=== PATIENT | female | born 1990 | race Hispanic/Latino ===

== ENCOUNTER 2019-02-07 09:04 | Day surgery (SDC) | payer OTHER ==
[~2019-02-07] VITALS: Ht 154.9 cm; Wt 76.2 kg
[~2019-02-07 09:04] MED LIST: LR 1,000 ML IV ONE
[2019-02-07] MEDS ORDERED: PROPOFOL 200 MG/20 ML VIAL As Ordered ONE ×2 (09:27→10:56)
[2019-02-07] MEDS ORDERED: fentaNYL 100 MCG/2 ML INJECTION (J3010) As Ordered ONE (09:27)
[2019-02-07] MEDS ORDERED: KETOROLAC 60 MG/2 ML VIAL (J1885) As Ordered ONE (09:27)
[2019-02-07] MEDS ORDERED: dexameTHASONE 4 MG/ML 1ML VIAL (J1100) As Ordered ONE (09:27)
[2019-02-07] MEDS ORDERED: LIDOCAINE 2% INJ 100 MG/5 ML SDV (FOR ANES.) As Ordered ONE (09:27)
[2019-02-07] MEDS ORDERED: MIDAZOLAM INJ 2 MG/2 ML VIAL (J2250) As Ordered ONE (09:27)
[2019-02-07] MEDS ORDERED: ONDANSETRON 4MG/2ML VIAL (J2405) As Ordered ONE (09:27)
[2019-02-07 09:43] LABS: HEMATOCRIT 41.7 % (36.0-47.0); HEMOGLOBIN 13.9 g/dl (12.0-15.5)
[2019-02-07 10:02] LABS: HCG, SERUM QUALITATIVE NEGATIVE (NEGATIVE)
[2019-02-07] MEDS ORDERED: LIDOCAINE W/EPINEPHRINE 1% 20ML VIAL As Ordered ONE (10:25)
[2019-02-07] MEDS ORDERED: BACITRACIN OINT 30GM As Ordered ONE (10:25)
[2019-02-07] MEDS ORDERED: ACETAMINOPHEN 1000MG 100ML IV BTL (OFIRMEV) (J0131 PER 10MG) As Ordered ONE (10:57)
[2019-02-07] MEDS ORDERED: ePHEDrine SULFATE 25 MG/5 ML(5MG/ML) SYRINGE As Ordered ONE (11:08)
[2019-02-07 12:05] VITALS: BP 111/71
--- NOTE | 2019-02-07 13:00 | RO ---
DATE OF OPERATION: 02/07/2019 SURGEON: Adilia Martino MD [employer]Y BUS DRIVER: CLINICAL SERVICE: Gynecology. INDICATION FOR OPERATION: Selina is a 28-year-old, (G) 4, para (P) 3-0-1-3, who presented to clinic with a recurrent left Bartholin's cyst that was enlarged. She previously had a of Bartholin's cyst at the same site years prior that was resolved for a time using a Word catheter. However, over time the cyst has recurred and has made her uncomfortable and she would like treatment to the cyst. PREOPERATIVE DIAGNOSIS: Left Bartholin's cyst. POSTOPERATIVE DIAGNOSIS: Left Bartholin's cyst. MATERIAL FORWARDED TO LAB FOR EXAMINATION: None. DESCRIPTION OF FINDINGS: There was an approximately 4 cm in size left Bartholin's cyst palpated within the left vulva. INFECTION CLASSIFICATION: 2. ESTIMATED BLOOD LOSS: 5 mL. IV FLUIDS: Lactated Ringer's 800 mL. URINE OUTPUT: 100 mL of yellow clear urine. OPERATION PERFORMED: Left Bartholin's cyst marsupialization. DESCRIPTION OF OPERATION: After obtaining informed consent, Selina was taken to the operating room where she underwent monitored anesthesia care (MAC) anesthesia. She was placed in low lithotomy position and the perineum and vagina were prepped and draped in sterile fashion. I examined the area and noted the 4 cm sized left Bartholin's cyst. I injected the area that I plan to incise overlying the cyst with 1% lidocaine. The cyst was incised with an approximately 2 cm in length incision about 1.5 cm deep using a scalpel. I drained the cyst completely and attempted to break up any loculations with a hemostat, but no real further loculations existed. At that point, I then used #3-0 Vicryl and several [id number] interrupted sutures around the edge of the incision to tack down the open cyst wall to the vaginal mucosa and keep the incision site opened for further drainage to heal from the inside out. Complete hemostasis was achieved using the sutures, and I placed a small amount of bacitracin over the area after completion of the procedure. The patient was awakened from anesthesia and taken to the recovery room in good condition. All counts were correct times two.
== END 2019-02-07 12:55 | disposition home or self-care (01) ==
LOC: M SDC 09:04
PROVIDERS: ATTEND Obstetrics & Gynecology
DX: N75.0 Cyst of Bartholin's gland (principal)
CPT/HCPCS: 36415; 56440; 84703; 85014; 85018; 86850; 86900; 86901; J0131; J1100; J1885; J2250; J2405; J3010